=== PATIENT | female | born 1985 | race Caucasian/White ===

== ENCOUNTER 2016-11-30 12:15 | Emergency (ER) | payer BC ==
[~2016-11-30] VITALS: Ht 160 cm; Wt 122.5 kg
[~2016-11-30 12:15] MED LIST: CHOL100017 PO; CYCL5TAB PO; LOPE2CAP PO; METF500T4 PO
[2016-11-30 12:36] VITALS: BP 113/66
[2016-11-30] MEDS ORDERED: IV NORMAL SALINE 1000ML BAG 1,000 ML IV ONE (13:00)
[2016-11-30] MEDS ORDERED: MORPHINE SULFATE 10 MG/ML VIAL. IV ONE (13:00)
[2016-11-30 13:22] LABS: BASO % 0 % (0-3); EOS % 1 % (0-3); HEMATOCRIT 40.3 % (36.0-47.0); HEMOGLOBIN 13.4 g/dL (12.0-15.5); LYMPH # 1.5 x10^3/uL (1.0-4.8); LYMPH % 12 % (24-48); MEAN CORPUSCULAR HEMOGLOBIN 30 pg (25-35); MEAN CORPUSCULAR HGB CONC 33 g/dL (31-37); MEAN CORPUSCULAR VOLUME 89 fL (79-100); MONO % 8 % (0-9); NEUT % 79 % (31-73); PLATELET COUNT 223 x10^3/uL (140-400); RED BLOOD COUNT 4.53 x10^6/uL (3.50-5.40); WHITE BLOOD COUNT 12.1 x10^3/uL (4.0-11.0)
[2016-11-30 13:41] LABS: CALCIUM 9.5 mg/dL (8.5-10.1); CREATININE 0.6 mg/dL (0.6-1.0); GFR 118.2
[2016-11-30] MEDS ORDERED: ONDANSETRON PF 4 MG/2 ML VIAL. IV ONE (13:45)
[2016-11-30 13:51] LABS: ALBUMIN/GLOBULIN RATIO 1.1 (1.0-1.7); TOTAL BILIRUBIN 0.5 mg/dL (0.2-1.0); TOTAL PROTEIN 7.8 g/dL (6.4-8.2)
[2016-11-30] MEDS ORDERED: fentaNYL PF VIAL 100 MCG/2 ML VIAL IV ONE (14:15)
--- NOTE | 2016-11-30 14:18 | PHYS DOC ---
Past Medical History Past Medical History: Other Additional Past Medical Histor: Back pain and allergies severe to peanuts Past Surgical History: Tonsillectomy, Other Additional Past Surgical Histo: Adnoids. Alcohol Use: None Drug Use: None Adult General Chief Complaint Chief Complaint: MECHANICAL FALL HPI HPI Patient is a 31 year old female who presents with moderate low back pain nonradiating in nature that began a couple minutes prior to coming to the ED. Patient states she is 7 weeks with one miscarriage at 8 weeks and was trying to lift her daughter who weighs 30 lbs from the inside of her vehicle. She states she was unable to lift her daughter. She states she put the daughter back into the car and fell on her buttocks. Patient denies any loss of consciousness. Denies any vaginal bleeding. Denies any abdominal pain nausea vomiting. Review of Systems Review of Systems Constitutional: Denies fever or chills [] Eyes: Denies change in visual acuity, redness, or eye pain [] HENT: Denies nasal congestion or sore throat [] Respiratory: Denies cough or shortness of breath [] Cardiovascular: No additional information not addressed in HPI [] GI: Denies abdominal pain, nausea, vomiting, bloody stools or diarrhea [] : Denies dysuria or hematuria [] Musculoskeletal: Back pain Integument: Denies rash or skin lesions [] Neurologic: Denies headache, focal weakness or sensory changes [] Endocrine: Denies polyuria or polydipsia [] Current Medications Current Medications Current Medications Medications (Trade) Dose Ordered Sig/[facility] Start Time Stop Time Status Last Admin Dose Admin Fentanyl Citrate (Fentanyl 2ml Vial) 50 mcg 1X ONCE 11/30/16 14:15 11/30/16 14:16 DC 11/30/16 14:22 50 MCG Morphine Sulfate 5 mg 1X ONCE 11/30/16 13:00 11/30/16 13:01 DC 11/30/16 13:31 5 MG Ondansetron HCl (Zofran) 4 mg 1X ONCE 11/30/16 13:45 11/30/16 13:46 DC 11/30/16 13:38 4 MG Sodium Chloride 1,000 ml @ 1,000 mls/hr 1X ONCE 11/30/16 13:00 11/30/16 13:59 DC 11/30/16 13:31 1,000 MLS/HR Allergies Allergies Allergies Coded Allergies Type Severity Reaction Last Updated Verified peanut Allergy Severe Anaphylaxis 10/29/13 Yes amoxicillin Allergy Intermediate hives 10/29/13 Yes doxycycline Allergy Intermediate hives 10/29/13 Yes levonorgestrel Allergy Intermediate rash & swelling 12/15/13 Yes Physical Exam Physical Exam Constitutional: Well developed, well nourished, no acute distress, non-toxic appearance. [] HENT: Normocephalic, atraumatic, bilateral external ears normal, oropharynx moist, no oral exudates, nose normal. [] Eyes: PERRLA, EOMI, conjunctiva normal, no discharge. [] Neck: Normal range of motion, no tenderness, supple, no stridor. [] Cardiovascular:Heart rate regular rhythm, no murmur [] Lungs & Thorax: Bilateral breath sounds clear to auscultation [] Abdomen: Bowel sounds normal, soft, no tenderness, no masses, no pulsatile masses. [] Skin: Warm, dry, no erythema, no rash. [] Back: Diffuse paraspinal muscle tenderness to the lumbar spine, no midline lumbar spine tenderness, no CVA tenderness. [] Extremities: No tenderness, no cyanosis, no clubbing, ROM intact, no edema. [] Neurologic: Alert and oriented X 3, normal motor function, normal sensory function, no focal deficits noted. [] Psychologic: Affect normal, judgement normal, mood normal. [] Current Patient Data Vital Signs Vital Signs Date Time Temp Pulse Resp B/P (MAP) Pulse Ox O2 Delivery O2 Flow Rate FiO2 11/30/16 14:22 Room Air 11/30/16 12:36 98.6 97 16 98 98.6 Lab Values Laboratory Tests Test 11/30/16 13:13 11/30/16 13:19 11/30/16 14:10 White Blood Count 12.1 x10^3/uL (4.0-11.0) H Red Blood Count 4.53 x10^6/uL (3.50-5.40) Hemoglobin 13.4 g/dL (12.0-15.5) Hematocrit 40.3 % (36.0-47.0) Mean Corpuscular Volume 89 fL (79-100) Mean Corpuscular Hemoglobin 30 pg (25-35) Mean Corpuscular Hemoglobin Concent 33 g/dL (31-37) Red Cell Distribution Width 14.0 % (11.5-14.5) Platelet Count 223 x10^3/uL (140-400) Neutrophils (%) (Auto) 79 % (31-73) H Lymphocytes (%) (Auto) 12 % (24-48) L Monocytes (%) (Auto) 8 % (0-9) Eosinophils (%) (Auto) 1 % (0-3) Basophils (%) (Auto) 0 % (0-3) Neutrophils # (Auto) 9.6 x10^3uL (1.8-7.7) H Lymphocytes # (Auto) 1.5 x10^3/uL (1.0-4.8) Monocytes # (Auto) 1.0 x10^3/uL (0.0-1.1) Eosinophils # (Auto) 0.1 x10^3/uL (0.0-0.7) Basophils # (Auto) 0.0 x10^3/uL (0.0-0.2) Maternal Serum HCG Beta Subunit 62388 mIU/mL (0-5) H Sodium Level 138 mmol/L (136-145) Potassium Level 4.0 mmol/L (3.5-5.1) Chloride Level 103 mmol/L (98-107) Carbon Dioxide Level 24 mmol/L (21-32) Anion Gap 11 (6-14) Blood Urea Nitrogen 6 mg/dL (7-20) L Creatinine 0.6 mg/dL (0.6-1.0) Estimated GFR (Cockcroft-Gault) 118.2 BUN/Creatinine Ratio 10 (6-20) Glucose Level 88 mg/dL (70-99) Calcium Level 9.5 mg/dL (8.5-10.1) Total Bilirubin 0.5 mg/dL (0.2-1.0) Aspartate Amino Transferase (AST) 66 U/L (15-37) H Alanine Aminotransferase (ALT) 171 U/L (14-59) H Alkaline Phosphatase 60 U/L (46-116) Total Protein 7.8 g/dL (6.4-8.2) Albumin 4.0 g/dL (3.4-5.0) Albumin/Globulin Ratio 1.1 (1.0-1.7) Lipase 107 U/L (73-393) POC Urine HCG, Qualitative Hcg positive (Negative) Urine Collection Type Unknown Urine Color Yellow Urine Clarity Cloudy Urine pH 6.0 Urine Specific [place] 1.025 Urine Protein Negative mg/dL (NEG-TRACE) Urine Glucose (UA) Negative mg/dL (NEG) Urine Ketones (Stick) Trace mg/dL (NEG) Urine Blood Negative (NEG) Urine Nitrite Negative (NEG) Urine Bilirubin Negative (NEG) Urine Urobilinogen Dipstick 0.2 mg/dL (0.2 mg/dL) Urine Leukocyte Esterase Small (NEG) Urine RBC 0 /HPF (0-2) Urine WBC 1-4 /HPF (0-4) Urine Squamous Epithelial Cells Mod /LPF Urine Bacteria Moderate /HPF (0-FEW) Urine Mucus Slight /LPF Laboratory Tests 11/30/16 13:13 Laboratory Tests 11/30/16 13:13 EKG EKG [] Radiology/Procedures Radiology/Procedures []PROCEDURE: OB <14 WKS W/TV Obstetrical ultrasound, 11/30/2016: History: Early , fall, pain Transabdominal and transvaginal scans were obtained. A single gestational sac is evident in the lower uterine segment. It contains a yolk sac and a pole demonstrating a crown-rump length of 1.3 cm. This suggests a gestational age of 7-8 weeks yielding a sonographic EDC of 07/15/2017. heart motion was evident with a heart rate of 153 bpm. No subchorionic hemorrhage was identified. A 1.4 cm hypoechoic nodules is noted in the myometrium anteriorly. This is probably a small fibroid. There may be an additional hypoechoic nodule in the fundal region, inconsistently visualized in this large patient. The right ovary contains a 3.1 cm cyst. It is otherwise unremarkable. The left ovary was not visualized. No significant free fluid is identified in the pelvis. IMPRESSION: 1. Single viable intrauterine fetus of 7-8 weeks gestational age. 2. Probable small uterine fibroids. 3. Corpus luteum cyst in the right ovary. DICTATED and SIGNED BY: JOURDAN GARCIA MD DATE: 11/30/16 5656 CC: LESLY RENTERIA APRN; NO PCP; NON,STAFF ~ Course & Med Decision Making Course & Med Decision Making Pertinent Labs and Imaging studies reviewed. (See chart for details) This is a 7 week female patient who presents today with back pain after falling on her buttocks. There was no loss of consciousness. She has no vaginal bleeding, abdominal pain, nausea or vomiting. Positive urine hCG, beta-hCG 98,447, CBC with a WBC of 12.1, CMP with AST of 66 , ALT of 171. Urine has small amount of infection though it appears contaminated. Patient is interested in getting antibiotics. Send her home with a prescription for MicroBid. Patient has her own [employer]. Requested that follow-up. She states she has an appointment on December 08, 2016. Reji Disclaimer Reji Disclaimer This electronic medical record was generated, in whole or in part, using a voice recognition dictation system. Departure Departure Impression: Primary Impression: Fall from standing Additional Impressions: Urinary tract infection Back pain Disposition: HOME, SELF-CARE Condition: STABLE Referrals: NO PCP (PCP) Follow-up with the [employer] on December 08, 2016 as scheduled Patient Instructions: Back Pain, Adult, Fall Prevention and Home Safety, Urinary Tract Infection Additional Instructions: You were seen for low back pain after falling. Follow-up with your own doctor on December 08, 2016 as scheduled. Come back to the ED for any concerning or worsening symptoms. Scripts Nitrofurantoin Monohyd/M-Cryst (MACROBID 100 MG CAPSULE) 100 Mg Capsule 1 CAP PO BID, #14 CAP Prov: LESLY RENTERIA APRN 11/30/16 Problem Qualifiers Primary Impression: Fall from standing Encounter type: initial encounter Qualified Codes: W19.XXXA - Unspecified fall, initial encounter Additional Impressions: Urinary tract infection Urinary tract infection type: site unspecified Hematuria presence: without hematuria Qualified Codes: N39.0 - Urinary tract infection, site not specified Back pain Back pain location: low back pain Chronicity: acute Back pain laterality: bilateral Sciatica presence: with sciatica Sciatica laterality: bilateral sciatica Qualified Codes: M54.42 - Lumbago with sciatica, left side; M54.41 - Lumbago with sciatica, right side LESLY RENTERIA APRN Nov 30, 2016 14:18
[2016-11-30 14:21] LABS: BILIRUBIN,URINE NEGATIVE (NEG); GLUCOSE,URINE NEGATIVE (NEG); NITRITE,URINE NEGATIVE (NEG); PROTEIN,URINE NEGATIVE (NEG-TRACE); UROBILINOGEN,URINE 0.2 mg/dL (0.2 mg/dL)
--- NOTE | 2016-11-30 14:47 | RAD ---
Obstetrical ultrasound, 11/30/2016: History: Early , fall, pain Transabdominal and transvaginal scans were obtained. A single gestational sac is evident in the lower uterine segment. It contains a yolk sac and a pole demonstrating a crown-rump length of 1.3 cm. This suggests a gestational age of 7-8 weeks yielding a sonographic EDC of 07/15/2017. heart motion was evident with a heart rate of 153 bpm. No subchorionic hemorrhage was identified. A 1.4 cm hypoechoic nodules is noted in the myometrium anteriorly. This is probably a small fibroid. There may be an additional hypoechoic nodule in the fundal region, inconsistently visualized in this large patient. The right ovary contains a 3.1 cm cyst. It is otherwise unremarkable. The left ovary was not visualized. No significant free fluid is identified in the pelvis. IMPRESSION: 1. Single viable intrauterine fetus of 7-8 weeks gestational age. 2. Probable small uterine fibroids. 3. Corpus luteum cyst in the right ovary.
[2016-11-30 15:16] LABS: BACTERIA,URINE MODERATE /HPF (0-FEW); RBC,URINE 0 /HPF (0-2); SQUAMOUS EPITHELIAL CELL,UR MOD /LPF
[2016-11-30] MEDS ORDERED: NITR100C62 PO (15:41)
== END 2016-11-30 15:48 | disposition home or self-care (01) ==
LOC: ER 12:15
DX: O23.41 Unspecified infection of urinary tract in pregnancy, first trimester (principal); M54.5 Low back pain; Z3A.01 Less than 8 weeks gestation of pregnancy; Z88.8 Allergy status to other drugs, medicaments and biological substances; Z88.1 Allergy status to other antibiotic agents; Z91.010 Allergy to peanuts; W18.39XA Other fall on same level, initial encounter; Y93.89 Activity, other specified; Y92.89 Other specified places as the place of occurrence of the external cause; Y99.8 Other external cause status
CPT/HCPCS: 36415; 76801; 76817; 80053; 81001; 81025; 83690; 84702; 85027; 96361; 96374; 96375; 99285; J2270; J2405; J3010; J7030; 87086

== ENCOUNTER 2017-11-26 19:05 | Emergency (ER) | payer SELFPAY, BC | END 2017-11-26 21:35 | disposition home or self-care (01) | LOC: ER 19:05 | DX: R22.41 Localized swelling, mass and lump, right lower limb (principal); M79.661 Pain in right lower leg; Z88.8 Allergy status to other drugs, medicaments and biological substances; Z88.1 Allergy status to other antibiotic agents; Z91.010 Allergy to peanuts | CPT/HCPCS: 73590; 99284 ==

== ENCOUNTER 2020-12-16 14:25 | Emergency (ER) | payer OTHER ==
[2017-11-26 19:31] VITALS: BP 154/82
[~2020-12-16 14:25] MED LIST changes: +METF500T16 PO; -METF500T4 PO; +NITR100C62 PO
== END 2020-12-16 15:22 | disposition left against medical advice (07) ==
LOC: ER 14:25
DX: N93.9 Abnormal uterine and vaginal bleeding, unspecified (principal); Z53.21 Procedure and treatment not carried out due to patient leaving prior to being seen by health care provider